=== PATIENT | male | born 1945 | race Caucasian/White ===

== ENCOUNTER 2024-09-28 07:39 | Outpatient (CLI) | payer MEDICARE, BC, SELFPAY ==
--- NOTE | 2024-09-28 08:55 | W.ANESCHARGE ---
Anesthesia Charges Start Date/Time Anesthesia Start Date: 09/28/24 Anesthesia Start Time: 08:27 Stop Date/Time Anesthesia Stop Date: 09/28/24 Anesthesia Stop Time: 08:56 Summary Extremes of Age - Over 70 or under 1: MDA Coding CPT Codes CPT Codes: ANES LWR INTST NDSC NOS - [id number] ([id number]) P2 - PATIENT W/MILD SYST DISEASE, QK - MANAGER PERFORMANCE IMPROVEMENT 2-4 CNCRNT ANES PROC, QX - NAPPER RUNNER SVC W/ MD MED DIRECTION Additional Codes: Summary - Extremes of Age - Over 70 or under 1: MDA ([id number])
--- NOTE | 2024-09-28 08:55 | P.ANES_ITS ---
Anesthesia Charges Start Date/Time Anesthesia Start Date: 09/28/24 Anesthesia Start Time: 08:27 Stop Date/Time Anesthesia Stop Date: 09/28/24 Anesthesia Stop Time: 08:56 Summary Extremes of Age - Over 70 or under 1: MDA Coding CPT Codes CPT Codes: ANES LWR INTST NDSC NOS - [id number] ([id number]) P2 - PATIENT W/MILD SYST DISEASE, QK - REFRIGERATING MACHINE OPERATOR 2-4 CNCRNT ANES PROC, QX - QUARRY BOSS SVC W/ MD MED DIRECTION Additional Codes: Summary - Extremes of Age - Over 70 or under 1: MDA ([id number])
--- NOTE | 2024-09-28 08:58 | P.ANES_ITS ---
Anesthesia Charges Start Date/Time Anesthesia Start Date: 09/28/24 Anesthesia Start Time: 08:27 Stop Date/Time Anesthesia Stop Date: 09/28/24 Anesthesia Stop Time: 08:56 Summary Extremes of Age - Over 70 or under 1: MEDICAL ACCOUNTS RECEIVABLE SPECIALIST Coding CPT Codes CPT Codes: ALMA ROSA LWR INTST NDSC NOS - [id number] ([id number]) P2 - PATIENT W/MILD SYST DISEASE, QK - TELEGRAPH REPEATER TECHNICIAN 2-4 CNCRNT ANEBraxton PROC, QX - MEDICAL ACCOUNTS RECEIVABLE SPECIALIST SVC W/ MD MED DIRECTION Additional Codes: Summary - Extremes of Age - Over 70 or under 1: MEDICAL ACCOUNTS RECEIVABLE SPECIALIST ([id number])
--- NOTE | 2024-09-28 08:58 | W.ANESCHARGE ---
Anesthesia Charges Start Date/Time Anesthesia Start Date: 09/28/24 Anesthesia Start Time: 08:27 Stop Date/Time Anesthesia Stop Date: 09/28/24 Anesthesia Stop Time: 08:56 Summary Extremes of Age - Over 70 or under 1: WAGON WASHER Coding CPT Codes CPT Codes: ALMA ROSA LWR INTST NDSC NOS - [id number] ([id number]) P2 - PATIENT W/MILD SYST DISEASE, QK - PARTNER ALLIANCE MANAGER 2-4 CNCRNT ANEBraxton PROC, QX - WAGON WASHER SVC W/ MD MED DIRECTION Additional Codes: Summary - Extremes of Age - Over 70 or under 1: WAGON WASHER ([id number])
== END 2024-09-28 07:40 | disposition home or self-care (01) ==
PROVIDERS: PCP Family Medicine; Visit Provider Internal Medicine Gastroenterology
DX: Z12.11 Encounter for screening for malignant neoplasm of colon (principal); Z86.0101 Personal history of adenomatous and serrated colon polyps; D12.2 Benign neoplasm of ascending colon; D12.4 Benign neoplasm of descending colon; K64.4 Residual hemorrhoidal skin tags
CPT/HCPCS: 00811; 45385; 88305; 99100; J2704